=== PATIENT | female | born 1940 | race Caucasian/White ===

== ENCOUNTER 2022-09-01 08:34 | Outpatient (RCR) | payer MEDICARE, OTHER, SELFPAY | END 2023-04-22 23:59 | disposition home or self-care (01) | PROVIDERS: PCP Family Medicine; Visit Provider Family Medicine | DX: H81.11 Benign paroxysmal vertigo, right ear (principal); Z51.89 Encounter for other specified aftercare | CPT/HCPCS: 95992; 97162 ==

== ENCOUNTER 2024-03-21 08:15 | Outpatient (RCR) | payer MEDICARE, OTHER, SELFPAY | END 2024-05-08 09:12 | disposition home or self-care (01) | PROVIDERS: PCP Family Medicine; Visit Provider Family Medicine | DX: M25.551 Pain in right hip (principal); M19.90 Unspecified osteoarthritis, unspecified site; Z51.89 Encounter for other specified aftercare | CPT/HCPCS: 97110; 97140; 97161 ==

== ENCOUNTER 2024-08-18 11:25 | Outpatient (CLI) | payer MEDICARE, OTHER, SELFPAY ==
--- NOTE | 2024-08-18 13:06 | P.ANES_ITS ---
Anesthesia Charges Start Date/Time Anesthesia Start Date: 08/18/24 Anesthesia Start Time: 12:40 Stop Date/Time Anesthesia Stop Date: 08/18/24 Anesthesia Stop Time: 13:01 Summary Extremes of Age - Over 70 or under 1: [employer]
--- NOTE | 2024-08-18 13:19 | W.ANESCHARGE ---
Anesthesia Charges Start Date/Time Anesthesia Start Date: 08/18/24 Anesthesia Start Time: 12:40 Stop Date/Time Anesthesia Stop Date: 08/18/24 Anesthesia Stop Time: 13:01 Summary Extremes of Age - Over 70 or under 1: MDA
== END 2024-08-18 11:26 | disposition home or self-care (01) ==
LOC: OP CLINIC 11:28
PROVIDERS: PCP Family Medicine; Visit Provider Internal Medicine Gastroenterology
DX: Z12.11 Encounter for screening for malignant neoplasm of colon (principal); D12.2 Benign neoplasm of ascending colon; Z86.0101 Personal history of adenomatous and serrated colon polyps
CPT/HCPCS: 00811; 45380; 45385; 88305; 99100; J2704

== ENCOUNTER 2025-01-30 10:15 | Outpatient (RCR) | payer MEDICARE, OTHER, SELFPAY | END 2025-03-13 08:10 | disposition home or self-care (01) | PROVIDERS: PCP Family Medicine; Visit Provider Family Medicine | DX: M25.561 Pain in right knee (principal); M25.562 Pain in left knee; G89.29 Other chronic pain; Z51.89 Encounter for other specified aftercare | CPT/HCPCS: 97110; 97161 ==